=== PATIENT | male | born 1940 | race Caucasian/White ===

== ENCOUNTER 2019-09-17 00:42 | Outpatient (CLI) | payer MEDICARE, SELFPAY ==
[2019-09-17 18:39] LABS: SARS-CoV-2 RNA PCR Negative
== END 2019-09-17 00:43 | disposition home or self-care (01) ==
LOC: ANHCOVIDDT 00:43
PROVIDERS: Visit Provider Internal Medicine Gastroenterology
DX: Z01.818 Encounter for other preprocedural examination (principal); Z11.59 Encounter for screening for other viral diseases
CPT/HCPCS: 87635; C9803; U0003

== ENCOUNTER 2019-09-19 01:21 | Day surgery (SDC) | payer MEDICARE, SELFPAY ==
[2019-09-13 13:05] VITALS: BMI 29.5
[2019-09-19 09:17] VITALS: BP 160/101; PULSE 68; RESP 16; TEMP 36.8; O2SAT 98; BMI 29.1
--- NOTE | 2019-09-19 09:45 | WPDANESEPPF ---
Anes - Initial Pre Proc Eval Procedure: Operation Date: 09/19/19 09:30 Proposed Procedures p Esophagogastroduodenoscopy & Colonoscopy - Jaspreet Rapp MD Date/Time: 09/19/19 09:45 Surgeon: Jaspreet Rapp MD Pre Op Diagnosis: Anemia, gastritis Patient Data Age: 79 Gender: M Height: 5 ft 4 in Weight: 77.1 kg Last Vital Signs Temp 98.3 F 09/19/19 09:17 Pulse 68 09/19/19 09:17 Resp 16 09/19/19 09:17 BP 160/101 H 09/19/19 09:17 Pulse Ox 98 09/19/19 09:17 Allergies Allergy/AdvReac Type Severity Reaction Status Date / Time No Known Allergies Allergy Verified 09/19/19 09:16 Home Medications Medication Instructions Recorded Confirmed Type acyclovir 400 mg PO DAILY 09/13/19 09/13/19 History apixaban [Eliquis] 5 mg PO BID 09/13/19 09/13/19 History carvedilol 3.125 mg PO DAILY 09/13/19 09/13/19 History lisinopril 5 mg PO DAILY 09/13/19 09/13/19 History mometasone 1 applic TOPICAL PRN PRN 09/13/19 09/13/19 History pantoprazole 40 mg PO HS 09/13/19 09/13/19 History primidone 250 mg PO HS 09/13/19 09/13/19 History tamsulosin 0.4 mg PO BID 09/13/19 09/13/19 History Patient hx anesthesia problems: none Family hx anesthesia problems: none [facility] Past Medical History Medical History (Updated 09/19/19 @ 09:45 by Boubacar Rodriguez MD) Anxiety H/O colon cancer, stage I Hyperlipidemia Hypertension Surgical History Surgical History (Updated 09/19/19 @ 09:47 by Jaspreet Rapp MD) S/P CABG (coronary artery bypass graft) Status post aortic valve replacement Anes - Eval Final PreProcedure Day of Procedure 09/19/19 09:45 Patient weight: normal Heart: regular rate and rhythm Lungs: clear to auscultation Airway: Mallampati scale class II Neurological: alert and oriented Last oral intake: >/= 8 hours ASA classification: III Emergent: no Anesthetic plan: proceed Anesthesia type and monitoring: general GIVS and standard monitoring Informed Consent: The patient's anesthetic plan and its attendant risks and benefits were discussed with the patient/family/POA. Questions were solicited and answers provided to the satisfaction of the patient/family/POA.
--- NOTE | 2019-09-19 09:46 | P.HP_ITS ---
History of Present Illness History of Present Illness Consent: Risks, benefits, and alternatives have been discussed and questions answered. Patient agrees to proceed with procedure. Chief complaint: Anemia, gastritis Narrative: Mike Link is a 79 year old W male referred for gastroscopy and colonoscopy for evaluation of iron deficiency anemia. The patient has no overt evidence of blood loss but does have Hemoccult-positive stools. Patient had previous EGD and colonoscopy 5 years ago. Patient is on Eliquis for deep venous thrombosis and has had a previous pocine aortic valve replacement in 2018 [facility] Past Medical History Medical History Anxiety H/O colon cancer, stage I Hyperlipidemia Hypertension Surgical History Surgical History (Updated 09/19/19 @ 09:47 by Jaspreet Rapp MD) S/P CABG (coronary artery bypass graft) Status post aortic valve replacement Meds Home Medications and Allergies Home Medications Medication Instructions Recorded Confirmed Type acyclovir 400 mg PO DAILY 09/13/19 09/13/19 History apixaban [Eliquis] 5 mg PO BID 09/13/19 09/13/19 History carvedilol 3.125 mg PO DAILY 09/13/19 09/13/19 History lisinopril 5 mg PO DAILY 09/13/19 09/13/19 History mometasone 1 applic TOPICAL PRN PRN 09/13/19 09/13/19 History pantoprazole 40 mg PO HS 09/13/19 09/13/19 History primidone 250 mg PO HS 09/13/19 09/13/19 History tamsulosin 0.4 mg PO BID 09/13/19 09/13/19 History Allergies Allergy/AdvReac Type Severity Reaction Status Date / Time No Known Allergies Allergy Verified 09/19/19 09:16 Vital Signs Vital Signs - 24 hr 09/19/19 09:17 Temperature 36.8 C Pulse Rate 68 Respiratory Rate 16 Blood Pressure 160/101 H Pulse Oximetry 98 Exam Const: Orientation/consciousness: patient oriented x3 Resp: Auscultation: clear to auscultation bilaterally Cardio: Rate: regular rate Rhythm: regular rhythm Heart sounds: no murmurs GI: GI Palp: Yes Soft to palpation, No Tenderness to palpation present (GI), Yes No hepatosplenomegaly present and No Palpable mass present Auscultation: normal bowel sounds Neuro: General: patient oriented x3 and no focal motor deficits Extrem: General: no pedal edema Assessment and Plan Additional Plan gastroscopy and colonoscopy for evaluation of iron deficiency anemia
[2019-09-19] MEDS: LACTATED RINGERS 1,000 ML 150 ML IV CONT (09:55)
[2019-09-19] MEDS: GENTAMICIN 60 MG/50 ML NS 60 MG/50 ML BAG 100 MG IVPB (09:56)
[2019-09-19] MEDS: AMPICILLIN 2 GM/NS 100 ML 2 GM/100 ML BAG IVPB (10:22)
[2019-09-19] MEDS: SIMETHICONE ORAL SUSPENSION 20 MG/0.3 ML 30 ML BOTTLE 0.6 ML IRRIGATION (11:11)
[2019-09-19 11:28] VITALS: BP 90/46; PULSE 65; RESP 16; O2SAT 96
[2019-09-19 11:37] VITALS: BP 87/50; PULSE 62; RESP 14; O2SAT 95
[2019-09-19 11:47] VITALS: BP 109/62; PULSE 59; RESP 14; O2SAT 96
== END 2019-09-19 12:03 | disposition home or self-care (01) ==
PROVIDERS: Visit Provider Internal Medicine Gastroenterology
PROC: 0DJ08ZZ Inspection of Upper Intestinal Tract, Via Natural or Artificial Opening Endoscopic (ICD-10-PCS; CPT 43235; principal; 2019-09-19 09:30)
DX: D50.9 Iron deficiency anemia, unspecified (principal); D12.8 Benign neoplasm of rectum; K57.30 Diverticulosis of large intestine without perforation or abscess without bleeding; K64.8 Other hemorrhoids; K64.4 Residual hemorrhoidal skin tags; Z98.0 Intestinal bypass and anastomosis status; K22.2 Esophageal obstruction; I10 Essential (primary) hypertension; E78.5 Hyperlipidemia, unspecified; Z85.038 Personal history of other malignant neoplasm of large intestine; Z95.1 Presence of aortocoronary bypass graft; Z95.4 Presence of other heart-valve replacement; Z79.01 Long term (current) use of anticoagulants
CPT/HCPCS: 45385; 43235; 88305; J0290; J1580; J2001; J2704; J7120